=== PATIENT | male | born 1940 | race Caucasian/White ===

== ENCOUNTER 2024-08-16 12:00 | Day surgery (SDC) | payer MEDICARE, OTHER, SELFPAY ==
[2024-08-16] VITALS (10 sets, daily range): BP systolic 105–163; BP diastolic 50–77; BMI 25.0
[2024-08-16 13:09] LABS: % Eosinophils 5.4 % (0-6); % Immature Granulocytes 0.4 % (0-0.5); % Lymphocytes 30.2 % (20.5-51.1); % Monocytes 9.7 % (1.7-9.3); % Neutrophils 53.3 % (42.2-75.2); Absolute Basophils 0.1 10^3/uL (0-0.2); Absolute Eosinophils 0.4 10^3/uL (0-0.7); Absolute Lymphocytes 2.2 10^3/uL (1.2-3.4); Absolute Monocytes 0.7 10^3/uL (0.1-0.6); Absolute Neutrophils 3.8 10^3/uL (1.4-6.5); Hematocrit 41.9 % (39.0-52.0); Mean Corp Hgb Conc. 33.4 g/dL (33.0-37.0); Mean Corpuscular Hgb 30.2 pg (27.0-31.0); Mean Corpuscular Volume 90.3 fL (80.0-94.0); Mean Platelet Volume 9.5 fL (7.4-10.4); Nucleated Red Blood Cells % 0 % (-); Platelet Count 220 10^3/uL (130-400); Red Blood Cell Count 4.64 10^6/uL (4.70-6.10); Red Cell Dist. Width 14.1 % (11.5-14.5); White Blood Cell Count 7.2 10^3/uL (4.8-10.8)
[2024-08-16 13:22] LABS: Blood Urea Nitrogen 20 mg/dl (9-20); Calcium 9.4 mg/dl (8.4-10.2); Carbon Dioxide 26 mmol/L (22-30); Chloride 108 mmol/L (98-107); Estimated Creatinine Clearance 52 ml/min; Glucose 134 mg/dl (70-99); Potassium 4.5 mmol/L (3.5-5.1); Sodium 142 mmol/L (135-145); eGFR > 60.00
[2024-08-16 14:13] LABS: Glucose - Point of Care 109 mg/dl (70-99)
--- NOTE | 2024-08-16 16:04 | ITS.CL.ICD ---
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
Implantable Cardioverter Defibrillator
Procedure Report:
Date of Procedure: August 16, 2024
Patient : [id number]
Procedures: Subpectoral ICD generator at [facility] with prior SVT ablation at [facility] complicated by heart block and implant of dual-chamber pacemaker. This device was then upgraded to [employer] with known chronic elevated LV threshold for 4 .0 V at 2.0 ms
Indication: 1) Class III CHF, LVEF 35%, 2) paced QRS
Implants:
Pulse Generator: [employer]; Model# G125; Serial#[id number]
Atrial Lead: [employer]: Model# 4469; Serial# [id number]
Right Ventricular Lead: [employer]; Model# 0184; Serial# [id number]
Left Ventricular Lead: [employer]; Model# 1156T; Serial# [id number]
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
Explants:
[employer] model G141 serial #[id number] implant date January 20, 2018
Technique: The patient was prepped and draped in the usual fashion. Local anesthetic was applied to the left prepectoral subcutaneous tissue. A 4 inch incision was made. The patient's device is subpectoral and blunt dissection of the pectoral
muscle revealed the device in the subpectoral pocket. Hemostasis was excellent. The chronic generator was identified and removed from the field. The chronic leads were connected to the new generator and placed in the subpectoral pocket.. The leads
were appropriately attached to the device. The pocket was irrigated with antibiotic solution. The pectoral muscle was loosely approximated with 0 silk suture in interrupted fashion. The device and leads were placed in the pocket and the device was
secured to pectoralis muscle and facia. The incision was closed with absorbable sutures. The estimated blood loss was minimal. There were no complications. Device based testing was performed as described below. IV contrast total: [ ] cc.
System Analysis:
RA lead: P: 5 mV; Threshold: 0.8 V @ 0.5 ms; Impedance: 346 ohms.
RV lead: R: 11.3 mV; Threshold: 0.6 V @ 0.5 ms; Impedance: 426 ohms.
LV lead: R: 10.5 mV; Threshold: 4.5 V @ 0.5 ms; Impedance: 801 ohms.
Final Programming: Tachy: VT/VF:188; Leon: DDDR 60-130.
Conclusion: Uncomplicated Biventricular ICD implant and removal of chronic BiV ICD generator.
Recommendation: Routine post BiV ICD care.
cc: Dr. Patricia Rehman
[2024-08-16 17:04] LABS: Glucose - Point of Care 131 mg/dl (70-99)
== END 2024-08-16 17:30 | disposition home or self-care (01) ==
LOC: CATH 12:00
PROVIDERS: ATTENDING PHYSICIAN Internal Medicine Cardiovascular Disease; FAMILY PHYSICIAN Internal Medicine
DX: Z45.02 Encounter for adjustment and management of automatic implantable cardiac defibrillator (principal); I25.10 Atherosclerotic heart disease of native coronary artery without angina pectoris; Z79.82 Long term (current) use of aspirin; Z79.4 Long term (current) use of insulin; Z79.899 Other long term (current) drug therapy; I44.2 Atrioventricular block, complete
CPT/HCPCS: 33264; 80048; 82962; 85025; C1882